=== PATIENT | male | born 1975 | race Caucasian/White ===

== ENCOUNTER 2017-03-04 14:31 | Emergency (ER) | payer OTHER ==
[~2017-03-04] VITALS: Ht 193 cm; Wt 119.6 kg
[~2017-03-04 14:31] MED LIST: NAPROSYN500 MG PO; TRAMADOL HCL50 MG PO; VALIUM5 MG PO
[2017-03-04 17:16] LABS: EOSINOPHIL (%) 0.9 % (0-5); EOSINOPHIL COUNT 0.1 K/uL (0-0.3); HEMATOCRIT 44.9 % (38.0-50.0); IMMATURE GRANULOCYTE (%) 0.3 % (0.0-0.7); INSTRUMENT ABS NEUTROPHIL CT 5.5 K/uL; LYMPHOCYTE COUNT 3.2 K/uL (1.0-2.8); MCH 32.1 PG (29.0-34.0); MCHC 34.1 G/DL (30.0-36.0); MCV 94.3 FL (86-99); MEAN PLAT.VOLUME 10.4 uM^3 (9.0-12.4); MONOCYTE (%) 8.1 % (3-12); MONOCYTE COUNT 0.8 K/uL (0-0.8); NEUTROPHIL (%) 57.1 % (45-76); NEUTROPHIL COUNT 5.5 K/uL (1.8-6.4); PLATELET COUNT 234 K/uL (156-360); RBC DIS.WIDTH-CV 12.1 % (11.8-14.6); RBC DIS.WIDTH-SD 42.2 % (39-53); RED BLOOD COUNT 4.76 M/uL (4.00-5.50); WHITE BLOOD COUNT 9.6 K/uL (4.1-10.2)
[2017-03-04 17:30] LABS: CHLORIDE 105 mEq/L (99-109); POTASSIUM 4.1 mEq/L (3.7-5.4); SODIUM 139 mEq/L (136-147)
[2017-03-04 17:33] LABS: GLUCOSE 85 mg/dL (70-99)
[2017-03-04 17:34] LABS: ANION GAP 10 MEQ/L (2-14); TOTAL BILIRUBIN 0.6 mg/dL (0.0-1.0)
[2017-03-04 17:36] LABS: ALKALINE PHOSPHATASE 71 IU/L (3-129)
[2017-03-04 17:37] LABS: GFR ESTIMATE (CALCULATED) > 59 mL/min/
[2017-03-04 17:38] LABS: DIRECT BILIRUBIN 0.2 mg/dL (0.0-0.3); UREA NITROGEN (BUN) 16 mg/dL (9-23)
[2017-03-04] MEDS ORDERED: SKELAXIN800 MG PO (17:57)
[2017-03-04] MEDS ORDERED: MOTRIN600 MG PO (17:57)
[2017-03-04] MEDS ORDERED: TRAMADOL HCL50 MG PO (17:57)
[2017-03-04] MEDS ORDERED: ISENTRESS400 MG PO (18:36)
[2017-03-04] MEDS ORDERED: TRUVADA1 TABLET PO (18:36)
[2017-03-04 18:40] VITALS: BP 134/94
[2017-03-05 11:14] LABS: ANTI-HEPATITIS B CORE (TOTAL) Nonreactive; HBCT INDEX 0.07
[2017-03-05 11:17] LABS: HBSG INDEX 0.22
[2017-03-05 11:18] LABS: AHBS INDEX > 1000.00; HIV INDEX 0.15; HIV-1/2 AB/AG COMBO Nonreactive; HPCA INDEX 0.17
[2017-03-05 11:23] LABS: HEPATITIS B SURFACE ANTIBODY REACTIVE
== END 2017-03-04 18:48 | disposition home or self-care (01) ==
LOC: EME 14:31
PROVIDERS: Physician Assistant
DX: S39.012A Strain of muscle, fascia and tendon of lower back, initial encounter (principal); Z77.21 Contact with and (suspected) exposure to potentially hazardous body fluids; X50.0XXA Overexertion from strenuous movement or load, initial encounter; Y93.F2 Activity, caregiving, lifting; Y92.149 Unspecified place in prison as the place of occurrence of the external cause; R56.9 Unspecified convulsions; G89.29 Other chronic pain; M54.9 Dorsalgia, unspecified; F17.200 Nicotine dependence, unspecified, uncomplicated
CPT/HCPCS: 72110; 80069; 80076; 85025; 86703; 86704; 86706; 86803; 87340; 99281; 99284